=== PATIENT | male | born 1985 | race Caucasian/White ===

== ENCOUNTER 2016-10-20 10:43 | Emergency (ER) | payer SELFPAY ==
--- NOTE | 2016-11-07 15:51 | ER ---
ADMIT: 10/20/2016 RM/LOC: ER [facility] MR#: [id number] [place], [place] [id number] [facility] [address] [place], [place] [id number] Emergency Room Report SEX: M AGE: 31 : 1985 DATE: 10/20/2016 ADDENDUM: CHIEF COMPLAINT: Left leg swelling. HISTORY OF PRESENT ILLNESS: This is a 31-year-old male, who had a left leg injury about 3 weeks ago. A piece of metal cut into his leg. It was doing just fine, and then about 2 weeks ago, it started becoming red and swollen. His friend had some penicillin injection, so he gave himself penicillin injection into his buttocks for a couple days. Kind of watched it and then it started becoming more red and swollen within the last couple days, so he presented to the ER. COURSE IN THE EMERGENCY ROOM: I did a CBC, ultrasound, and x-ray. X-ray did not show any foreign bodies. No fracture. His CBC was normal except for white count of 15.5, platelets 420. I gave him Rocephin 1 g IM here, Bactrim DS two tabs p.o. here, and sent him home with Bactrim and Keflex. He feels okay to initiate oral antibiotics. If this does not help, I told him that he may need to come back for IV antibiotics. CLINICAL IMPRESSION: Cellulitis to the left leg. ROBBIE Malave / Marin Duffy MD / jean-claudel JOB #: [id number] CC: Marin Duffy MD, Attending Physician UNKNOWN, Family Physician
== END 2016-10-20 13:05 | disposition home or self-care (01) ==
LOC: ER 10:43
DX: L03.116 Cellulitis of left lower limb (principal)